=== PATIENT | male | born 1945 | race Caucasian/White ===

== ENCOUNTER 2017-11-21 00:05 | Day surgery (SDC) | payer MEDICARE, OTHER ==
[2017-11-20 15:25] LABS: PLATELET COUNT, AUTOMATED 244 K/uL (150-450)
[~2017-11-21] VITALS: Ht 175.3 cm; Wt 103.0 kg
[~2017-11-21 00:05] MED LIST: ATEN-1 PO; DIP25 PO; DOCU-299 PO; FAM20 PO; FLUOD OP; HYDR-2952 PO; HYDR-318 PO; IBU600 PO; IBUP800T37 PO; LEV500 PO; LEV500P IV; LEVO-85 PO; LOR5/325 PO; MAX75 PO; MULT-820 PO; OMEP-218 PO; PHENA200 PO; PRAV20TA65 PO; PRE20 PO; TRIA-102 PO
[2017-11-21] MEDS ORDERED: cefTRIAXone 2 GM VIAL IVP ONE (06:30)
[2017-11-21] MEDS ORDERED: LIDOCAINE/SOD BICARB 8.4% SYR ID ONE (06:30)
[2017-11-21] MEDS ORDERED: cefTRIAXone(*) 2 GM VIAL 2 GM in NS(*) 0.9% 100 ML ADDVANT BAG 100 ML IVPB ONE (06:30)
[2017-11-21] MEDS ORDERED: MIDAZOLAM 2 MG/2 ML VIAL IVP PRN (06:30)
[2017-11-21] MEDS ORDERED: NORMOSOL R SOLN(*) 1000 ML BAG 1,000 ML IV PRN (06:30)
[2017-11-21] MEDS ORDERED: GENTAMICIN(*) 80 MG/2 ML VIAL 160 MG in NS(*) 0.9% 100 ML BAG 100 ML IVPB ONE (06:30)
[2017-11-21 06:36] VITALS: BP 157/95
--- NOTE | 2017-11-21 06:59 | EKG ---
FACILITY: [facility] [place] PATIENT NAME: SHELDON CORBETT : [id number] MR: [id number] V: [id number] EXAM DATE: ORDERING PHYSICIAN: PHAN VERA TECHNOLOGIST: Test Reason : pre-op Blood Pressure : / mmHG Vent. Rate : 054 BPM Atrial Rate : 054 BPM P-R Int : 156 ms QRS Dur : 080 ms QT Int : 444 ms P-R-T Axes : 047 -11 013 degrees QTc Int : 421 ms Sinus bradycardia Otherwise normal ECG When compared with ECG of 12-DEC-2015 08:44, No significant change was found Confirmed by KAY BREWER ([id number]) on 11/21/2017 7:50:34 AM Referred By: Confirmed By:KAY BREWER
[2017-11-21] MEDS ORDERED: DEXAMETHASONE SOD 4 MG/ML VIAL ONE (07:06)
[2017-11-21] MEDS ORDERED: fentaNYL CITR 100 MCG/2 ML AMP ONE (07:06)
[2017-11-21] MEDS ORDERED: PROPOFOL EMUL(*) 10MG/ML 20 ML 20 ML ONE (07:06)
[2017-11-21] MEDS ORDERED: ONDANSETRON 4 MG/2 ML VIAL ONE (07:06)
[2017-11-21] MEDS ORDERED: LIDOCAINE MPF 1% 5 ML VIAL ONE (07:06)
[2017-11-21] MEDS ORDERED: ACET-3017 PO (09:06)
[2017-11-21] MEDS ORDERED: LEVO-85 PO (09:07)
[2017-11-21 09:15] VITALS: BP 106/77
[2017-11-21 09:30] VITALS: BP 136/91
[2017-11-21 09:32] VITALS: BP 132/87
--- NOTE | 2017-11-21 12:02 | OPERATIVE REPORT 1 ---
EVENT DATE: November 21, 2017 SURGEON: Johnathon Stacy MD ANESTHESIOLOGIST: Ruperto Montes MD ANESTHESIA: General anesthetic. PREOPERATIVE DIAGNOSIS 1. Elevated prostate specific antigen etiology ?. 2. Prostatic obstruction. 3. Acute and chronic prostatitis. POSTOPERATIVE DIAGNOSIS 1. Elevated prostate specific antigen etiology ?. 2. Prostatic obstruction. 3. Acute and chronic prostatitis. PROCEDURE PERFORMED 1. Prostate ultrasound, transrectal. 2. Transrectal biopsies x 12. 3. Cystourethroscopy. 4. Evacuation of multiple blood clots in the bladder. DESCRIPTION OF PROCEDURE Under general anesthetic, the patient was prepped and draped in the extended lithotomy position. The prostate ultrasound probe was introduced transrectally. The prostate ultrasound showed no hypoechoic areas. There were a few scattered cystic areas and a few scattered calculi. The prostate measured to approximately 43 grams. Biopsies were obtained from the base, mid, and apical areas of the prostate bilaterally for a total 12 transrectal biopsies. At conclusion of the biopsies, the rectal probe was removed. The digital examination revealed minimal blood in the rectal ampulla. The patient was reprepped and draped. The 21 panendoscope admitted through the urethra into the bladder. The urethra was normal. The prostate showed trilobar hyperplasia with obstruction. There was intravesicular extension of the medial lobe over the trigone. The bladder showed 4+ trabeculation, no other demonstrable lesions. There were a few blood clots, 4 or 5 that were evacuated from the bladder. There appeared to be no active bleeding following the evacuation of the blood clots. The bladder was drained. The scope was withdrawn. Digital examination again revealed minimal blood in the rectal ampulla. The patient tolerated the procedure satisfactorily and returned to the recovery room in satisfactory condition. This is a 72-year-old white male complaining of an elevated PSA. The latest evaluation November,. The patient's latest evaluation and biopsies were done in 2015. At that time the sample showed acute and chronic inflammation and abscess formation. The patient was agreeable to follow up evaluation. That has been accomplished, see operative note for details. The patient will be ready for discharge home when alert and functional, to force fluids 2 liters per day. Activities are as tolerated. He is advised on bed rest today and forcing fluids. If all is going well in the morning with minimal bleeding, the patient may resume his usual activities. The patient was discharged home on Levaquin, Pepcid, Motrin, Pyridium and Durand therapy. The patient is continue his usual medications. Plan follow up in the office this coming Tuesday for his biopsy results. MORALES
--- NOTE | 2017-11-21 13:40 | RADIOLOGY IMAGING REPORT ---
FACILITY: [facility] PATIENT NAME: Mihai Zurita : 1945 MR: [id number] V: [id number] EXAM DATE: ORDERING PHYSICIAN: JAMES DUMONT TECHNOLOGIST: Location: [facility] [place] Patient: Mihai Zurita : 1945 Visit/Account:[id number] Date of Sevice: 11/21/2017 Exam type: PROSTATE BIOPSY History: Elevated PSA Comparison: December 15 2015. Findings: Prostate biopsy was performed by Dr. Dumont. Sonographic assistance was provided. Please see Dr. Nguyễn donovan's note for complete details. IMPRESSION: 1. As above Report Dictated By: Kenzie Mauricio MD at 11/21/2017 1:35 PM Report E-Signed By: Kenzie Mauricio MD at 11/21/2017 1:36 PM WSN:[id number]
== END 2017-11-21 09:15 | disposition home or self-care (01) ==
LOC: OR 00:05
DX: R97.20 Elevated prostate specific antigen [PSA] (principal); N40.0 Benign prostatic hyperplasia without lower urinary tract symptoms; N41.0 Acute prostatitis; I10 Essential (primary) hypertension
CPT/HCPCS: 36415; 52001; 55700; 76942; 81001; 85025; 88305; 88344; 93005; J0696; J1100; J1580; J2001; J2405; J2704; J3010; J7050; 82310; 82374; 82435; 82565; 82947; 84132; 84295; 84520

== ENCOUNTER → 2018-09-12 | Outpatient (CLI) | payer MEDICARE, OTHER ==
[~2018-09-12] MED LIST changes: +ACET-3017 PO
== END ==
LOC: LAB 09:44
PROVIDERS: ATTEND Surgery
DX: E83.52 Hypercalcemia (principal)
CPT/HCPCS: 36415; 82330; 83970

== ENCOUNTER → 2018-09-15 | Outpatient (CLI) | payer MEDICARE, OTHER ==
--- NOTE | 2018-09-15 15:55 | RADIOLOGY IMAGING REPORT ---
FACILITY: [facility] - [place] PATIENT NAME: Mihai Zurita : 1945 MR: [id number] V: [id number] EXAM DATE: ORDERING PHYSICIAN: OVIDIO WYNNE TECHNOLOGIST: Location: [facility] [place] Patient: Mihai Zurita : 1945 Visit/Account:[id number] Date of Sevice: 09/15/2018 PARATHYROID IMAGING HISTORY: look for parathyroid adenoma TECHNIQUE: 26.6 mCi Tc-99m Sestamibi was injected intravenously. Gamma camera images were obtained o f the head, neck and chest at 10 minutes and 3 hours in various orientations following radiotracer ad ministration. SPECT imaging was also performed at 3 hours. COMPARISON: None. FINDINGS: 15 minute images: Normal uptake of tracer by the salivary glands, the thyroid gland, and the myocard ium. Excreted hepatobiliary activity is seen beneath the diaphragm. 3 hour images: Normal washout of tracer from the thyroid gland. No focal areas of abnormal radiotrac er uptake are identified in the neck or mediastinum to suggest the presence of a parathyroid adenoma. Note, a small round site of activity projecting on early and late images caudal to the inferior right thyroid lobe and appearing to correspond with curvilinear activity throughout the visualized right u pper extremity, axillary and subclavian regions, becomes more subtle on the latter images and in the oblique projection is shown to be positioned anterior to thyroid consistent with artifact related to venous activity rather than parathyroid adenoma. IMPRESSION: No scintigraphically evident parathyroid adenoma. Report Dictated By: Abhishek Garduno MD at 09/15/2018 3:44 PM Report E-Signed By: Abhishek Garduno MD at 09/15/2018 3:47 PM WSN:[id number]
== END ==
LOC: NUC 00:39
PROVIDERS: ATTEND Surgery
DX: E21.3 Hyperparathyroidism, unspecified (principal)
CPT/HCPCS: 78070; 82340; A9500

== ENCOUNTER → 2018-09-19 | Outpatient (CLI) | payer MEDICARE, OTHER ==
--- NOTE | 2018-09-19 14:40 | RADIOLOGY IMAGING REPORT ---
FACILITY: [facility] - [place] PATIENT NAME: Mihai Zurita : 1945 MR: [id number] V: [id number] EXAM DATE: ORDERING PHYSICIAN: OVIDIO WYNNE TECHNOLOGIST: Location: [facility] Patient: Mihai Zurita : 1945 Visit/Account:[id number] Date of Sevice: 09/19/2018 THYROID HISTORY: look for parathyroid adenoma COMPARISON: Nuclear medicine parathyroid imaging September 15, 2018 FINDINGS: SIZE: Normal. Right lobe: 5 x 2.3 x 2.5 cm Left lobe: 3.4 x 1.8 x 1.9 cm Isthmus: 6 mm PARENCHYMA: Diffusely heterogeneous bilaterally NODULES: Right lobe: * In the superior pole there is a 9 mm well-circumscribed hypoechoic nodule. In the medial mid righ t lobe there is a 1.1 cm well-circumscribed partially cystic partially solid nodule.. There is a 1.1 cm cyst projecting from the inferior medial aspect of the right lobe Left lobe: * In the superior pole there is a 1.2 cm slightly irregular hypoechoic nodule. * In the inferior left lobe there is a 6 mm well-circumscribed hypoechoic nodule and several small c ysts Isthmus: * None discrete. VASCULARITY: Within normal limits. ADDITIONAL FINDINGS: None. IMPRESSION: Both lobes appear diffusely heterogeneous In the superior left lobe there is a 1.2 cm slightly irregular hypoechoic nodule for which ultrasound -guided fine-needle aspiration is recommended REFERENCE: 2015 [place] [employer] Management Guidelines for Adult Patients with Thyroid Nodules and D ifferentiated Thyroid Cancer: The [place] [employer] Guidelines Task Force on Thyroid Nodul es and Differentiated Thyroid Cancer. SONOGRAPHIC PATTERNS: * Benign: Purely cystic nodules (no solid component); estimated risk of malignancy <1 percent; no bi opsy recommended. * Very Low Suspicion: Spongiform or partially cystic nodules without any of the sonographic features described in low, intermediate, or high suspicion patterns; estimated risk of malignancy <3 percent; consider FNA at > 2 cm (Observation without FNA is also a reasonable option). * Low Suspicion: Isoechoic or hyperechoic solid nodule, or partially cystic nodule with eccentric so lid areas, without microcalcification, irregular margin or ETE (extra-thyroidal extension), or taller than wide shape; estimated risk of malignancy 5-10 percent; recommend FNA at >1.5 cm. * Intermediate Suspicion: Hypoechoic solid nodule with smooth margins without microcalcifications, E TE (extra-thyroidal extension), or taller than wide shape; estimated risk of malignancy 10-20 percent ; recommend FNA at > 1 cm. * High Suspicion: Solid hypoechoic nodule or solid hypoechoic component of a partially cystic nodule with one or more of the following features: irregular margins (infiltrative, microlobulated), microc alcifications, taller than wide shape, rim calcifications with small extrusive soft tissue component, evidence of ETE (extra-thyroidal extension); estimated risk of malignancy >70-90 percent; recommend FNA at > 1 cm. NOTES: * Although a sonographically suspicious subcentimeter thyroid nodule without evidence of extrathyroi peterson extension or sonographically suspicious lymph nodes may be observed with close sonographic follow -up rather than pursuing immediate FNA, patient age and preference may modify decision-making. A > 50% interval increase in nodule volume and/or development of new suspicious sonographic features are felt to be a valid reasons for potential re-aspiration of a nodule previously shown to have benig n FNA cytology. results are pending. Report Dictated By: Kenzie Mauricio MD at 09/19/2018 2:26 PM Report E-Signed By: Kenzie Mauricio MD at 09/19/2018 2:31 PM WSN:[id number]
--- NOTE | 2018-09-19 15:16 | RADIOLOGY IMAGING REPORT ---
FACILITY: [facility] - [place] PATIENT NAME: Mihai Zurita : 1945 MR: [id number] V: [id number] EXAM DATE: ORDERING PHYSICIAN: OVIDIO WYNNE TECHNOLOGIST: Location: [facility] [place] Patient: Mihai Zurita : 1945 Visit/Account:[id number] Date of Sevice: 09/19/2018 DEXA Scan Clinical history: Hypercalcemia. Comparison: None available. LUMBAR SPINE: The bone mineral density (BMD) measured from L1-L4 correlates with a Z-score zero and a T-score of 3. 1 which is Normal as defined by the World Health Organization. The corresponding risk of fracture in the lumbar spine is Not increased compared with a young adult reference population. HIP: Bone mineral density (BMD) measured in the Left total hip region correlates with a Z-score -1.5 and a T-score of -1.9 which is osteopenia as defined by the World Health Organization. The corresponding risk of fracture in the hip is 3-4 times increased compared with a young adult reference population. T score left femoral neck -3.1 Bone mineral density (BMD) measured in the Femoral Neck region measures 0.664 g/cm2. Impression: 1. Lumbar spine: Normal. 2. Left Hip: Osteopenia. 3. Femoral Neck: Bone Mineral Density is 0.664 g/cm2 The next DEXA scan of this patient should include the following sites: L1-L4 and the left hip. FRAX? WHO Fracture Risk Assessment Tool link: <http://www.shef.ac.uk/FRAX/tool.jsp?locationValue=9> PLEASE NOTE: 1) The World Health Organization defines low BMD as follows: T-score Normal > -1 Osteopenia < -1 and > -2.5 Osteoporosis < -2.5 without fractures Established osteoporosis < -2.5 with fractures 2) In general, you may wish to consider: Diagnosis Treatment Follow-up DEXA Normal BMD Prevention 2-3 years Osteopenia Prevention/therapy 1-2 years Osteoporosis Therapy Yearly 3) Fracture risk estimated from the T-score is more accurate for vertebral fractures (often spontane ous) than for hip fractures. Report Dictated By: Kenzie Mauricio MD at 09/19/2018 3:05 PM Report E-Signed By: Kenzie Mauricio MD at 09/19/2018 3:06 PM WSN:[email or web address]
== END ==
LOC: RAD 01:02
PROVIDERS: ATTEND Surgery
DX: E21.3 Hyperparathyroidism, unspecified (principal); M85.852 Other specified disorders of bone density and structure, left thigh
CPT/HCPCS: 76536; 77080

== ENCOUNTER → 2018-09-25 | Outpatient (CLI) | payer MEDICARE, OTHER | LOC: LAB 10:27 | PROVIDERS: ATTEND Surgery | DX: Z01.812 Encounter for preprocedural laboratory examination (principal) | CPT/HCPCS: 36415; 82565 ==

== ENCOUNTER → 2018-09-28 | Outpatient (CLI) | payer MEDICARE, OTHER ==
[~2018-09-28] MED LIST changes: +IOPAMIDOL 76% 100 ML INFUS BTL 100 ML ONE
--- NOTE | 2018-09-28 10:21 | RADIOLOGY IMAGING REPORT ---
FACILITY: [facility] - [place] PATIENT NAME: Mihai Zurita : 1945 MR: [id number] V: [id number] EXAM DATE: ORDERING PHYSICIAN: OVIDIO WYNNE TECHNOLOGIST: Location: [facility] [place] Patient: Mihai Zurita : 1945 Visit/Account:[id number] Date of Sevice: 09/28/2018 CT SOFT TISSUE NECK W & W/O CON INDICATION: Hyperparathyroidism COMPARISON: Ultrasound September 19, 2018 TECHNIQUE: Noncontrast neck CT was first performed. 75 mL Isovue-370 was injected followed by imaging of the neck in the arterial and venous phases. Sagittal and coronal reformations generated. One of t he following dose optimization techniques was utilized in the performance of this exam: automated exp osure control; adjustment of the mA and/or kV according to patient size; or use of iterative reconstr uction technique. Specific details can be referenced in the facility's radiology CT exam operational policy. FINDINGS Small sebaceous cyst noted in the left posterior lateral cheek. There is a minimally dense nodule just above the thoracic inlet on the right which abuts the inferior right thyroid lobe with Hounsfield units of 53 on the noncontrast acquisition this measures 1.6 cm t ransverse dimension and correlates with the hypoechoic nodule seen in this region on the comparison u ltrasound, precontrast axial image 54. This exhibits no appreciable enhancement on the arterial or ve nous phase acquisitions. No hyperdense enhancing suspicious nodularity seen in the neck and visualized chest. A few bilateral thyroid nodules as seen on comparison ultrasound. Normal parotid and submandibular gl ands. No enlarged or suspicious appearing neck lymph nodes. Normal neck vasculature. The visible intr acranial structures are normal. The visible lungs are clear. Chronic left rib fracture deformities no girma. Multilevel cervical spine disc space degeneration and facet arthropathy. Subchondral cyst noted in the C6 vertebral body. Slight chronic T1, T2 and T3 vertebral body wedging. IMPRESSION: 1. 1.6 cm nodule in the right lower neck just above the thoracic inlet abuts the right lower thyroid lobe and correlates with a hypoechoic nodule seen on comparison ultrasound. This nodule exhibits no a ppreciable enhancement on the arterial or venous phase acquisitions. This may represent an atypical p arathyroid adenoma (notably parathyroid adenomas typically hyperenhance on arterial phase imaging on CT) or an exophytic thyroid nodule. Sestamibi nuclear medicine scan should be considered for further characterization given history to ev aluate for uptake within this nodule which would suggest this represents a parathyroid adenoma. 2. No additional suspicious nodularity seen in the neck or visible chest to localize a parathyroid ad enoma. Report Dictated By: Demetrio Stoddard MD at 09/28/2018 8:56 AM Report E-Signed By: Demetrio Stoddard MD at 09/28/2018 10:13 AM WSN:[email or web address]
== END ==
LOC: CT 03:50
PROVIDERS: ATTEND Surgery
DX: L72.3 Sebaceous cyst (principal); E21.3 Hyperparathyroidism, unspecified
CPT/HCPCS: 70492; Q9967